=== PATIENT | female | born 1995 | race Caucasian/White ===

== ENCOUNTER 2021-10-23 19:10 | Outpatient (CLI) | payer OTHER ==
[~2021-10-23 19:10] MED LIST: IBUPROFEN600 MG PO; MEDROL DOSEPAK 24 MG PO; NORCO 5-325 TA1 EACH PO; VALIUM 5 MG TAB5 MG PO
[2021-10-23 21:20] LABS: HEMOGLOBIN 11.9 gm/dl (12.3-15.3); RED BLOOD COUNT 3.91 M/UL (4.00-5.10); WHITE BLOOD COUNT 13.5 K/UL (4.5-11.0)
== END 2021-10-23 22:34 | disposition home or self-care (01) ==
LOC: GENOP 19:10
PROVIDERS: Obstetrics & Gynecology
DX: O99.283 Endocrine, nutritional and metabolic diseases complicating pregnancy, third trimester (principal); E86.0 Dehydration; O99.613 Diseases of the digestive system complicating pregnancy, third trimester; A08.4 Viral intestinal infection, unspecified; Z87.891 Personal history of nicotine dependence; Z3A.39 39 weeks gestation of pregnancy
CPT/HCPCS: 81001; 85025; 96360; 96361; 96374; 96375; C9113; J2405; J2550; J7120

== ENCOUNTER 2022-01-23 16:40 | Inpatient (IN) | payer OTHER ==
[~2022-01-23] VITALS: Ht 162.6 cm; Wt 105.2 kg
[2022-01-23 17:41] LABS: HEMOGLOBIN 10.7 gm/dl (12.3-15.3); RED BLOOD COUNT 3.63 M/UL (4.00-5.10); WHITE BLOOD COUNT 12.1 K/UL (4.5-11.0)
[2022-01-23] MEDS ORDERED: PRENATAL VITAM1 EAC8 PO (18:39)
[2022-01-23] MEDS ORDERED: PEPCID20 MG PO (18:39)
[2022-01-24] MEDS ORDERED: COLACE 100MG C100 MG PO (15:27)
[2022-01-24] MEDS ORDERED: HYDROCODON-ACE1 EAC4 PO (15:27)
[2022-01-24] MEDS ORDERED: IBUPROFEN800 MG PO (15:27)
[2022-01-25 04:56] LABS: HEMOGLOBIN 9.6 gm/dl (12.3-15.3)
[2022-01-25] MEDS ORDERED: FERROUS SULFAT325 MG PO (08:51)
== END 2022-01-25 19:57 | disposition home or self-care (01) | DRG 806 ==
LOC: GENOP 16:40 → OB 18:42
PROVIDERS: Obstetrics & Gynecology; ADMIT Obstetrics & Gynecology
PROC: 10E0XZZ Delivery of Products of Conception, External Approach (ICD-10-PCS; principal; 2022-01-24)
PROC: 0KQM0ZZ Repair Perineum Muscle, Open Approach (ICD-10-PCS; principal; 2022-01-24)
PROC: 10907ZC Drainage of Amniotic Fluid, Therapeutic from Products of Conception, Via Natural or Artificial Opening (ICD-10-PCS; 2022-01-24)
PROC: 3E033VJ Introduction of Other Hormone into Peripheral Vein, Percutaneous Approach (ICD-10-PCS; 2022-01-24)
PROC: 3E0234Z Introduction of Serum, Toxoid and Vaccine into Muscle, Percutaneous Approach (ICD-10-PCS; 2022-01-24)
DX: O99.62 Diseases of the digestive system complicating childbirth (principal); D62 Acute posthemorrhagic anemia; Z37.0 Single live birth; O99.343 Other mental disorders complicating pregnancy, third trimester; O99.334 Smoking (tobacco) complicating childbirth; F17.200 Nicotine dependence, unspecified, uncomplicated; F41.9 Anxiety disorder, unspecified; K21.9 Gastro-esophageal reflux disease without esophagitis; F31.9 Bipolar disorder, unspecified; Z3A.39 39 weeks gestation of pregnancy; Z28.310 Unvaccinated for COVID-19; Z81.8 Family history of other mental and behavioral disorders; Z23 Encounter for immunization; O70.1 Second degree perineal laceration during delivery; O99.03 Anemia complicating the puerperium
CPT/HCPCS: 36415; 81001; 82800; 85014; 85018; 85025; 90471; 90715; J2405; J2590